=== PATIENT | male | born 1975 | race Two or more races ===

== ENCOUNTER 2021-02-01 18:26 | Inpatient (IN) | payer MEDICARE, OTHER ==
[~2021-02-01] VITALS: Ht 190.5 cm; Wt 67.1 kg
[2021-02-01] MEDS ORDERED: levoFLOXacin 500MG 100 ML IV ONE (19:45)
[2021-02-01 21:06] LABS: Basophils # (auto) 0.1 10 ^3/uL (0-0.2); Basophils % (auto) 0.5 % (0.0-2.0); Eosinophils # (auto) 0 10 ^3/uL (0-0.8); Eosinophils % (auto) 0.1 % (0.0-7.0); Hematocrit 39.1 % (41.0-53.0); Lymphocytes # (auto) 1.9 10 ^3/uL (0.4-5.4); Lymphocytes % (auto) 8.3 % (10.0-50.0); Mean Corpuscular Hemoglobin 30.6 pg (28.0-32.0); Mean Corpuscular Hgb Conc. 33.3 g/dL (32.0-36.0); Monocytes # (auto) 0.6 10 ^3/uL (0-1.3); Monocytes % (auto) 2.7 % (0.0-12.0); Neutrophils # (auto) 20.3 10 ^3/uL (1.6-8.6); Neutrophils % (auto) 88.4 % (37.0-80.0); Red Blood Cells 4.25 10^6/uL (4.5-5.90); Red Cell Distribution Width 16.3 % (11.8-14.3); White Blood Cell 22.9 10^3/uL (4.4-10.8)
[2021-02-01 21:34] LABS: Anion Gap 9 (5-15); Blood Urea Nitrogen 17 mg/dL (7-18); Carbon Dioxide 19 mmol/L (21-32); Chloride 99 mmol/L (98-107); Glucose 92 mg/dL (74-106); Potassium 4.2 mmol/L (3.5-5.1); Sodium 127 mmol/L (136-145)
[2021-02-01 21:37] LABS: Alanine Aminotransferase 35 U/L (16-61); Alkaline Phosphatase 123 U/L (45-117); Aspartate Aminotransferase 25 U/L (15-37); BUN/Creatinine Ratio 113.3; Bilirubin, Total 0.3 mg/dL (0.2-1.0); GFR African American 924 mL/min; GFR Non-African American 763 mL/min; Total Protein 7.4 g/dL (6.4-8.2)
[2021-02-01] MEDS ORDERED: ACETAMINOPHEN 650 MG RECT SUPP PR ONE (23:30)
[2021-02-01] MEDS ORDERED: SODIUM CHLORIDE 0.9% 1,000 ML IV ONE (23:30)
[2021-02-02] VITALS (7 sets, daily range): BP systolic 84–111; BP diastolic 56–68
[2021-02-02] MEDS ORDERED: SODIUM CHLORIDE 0.9% 2,000 ML IV ONE
[2021-02-02 00:49] LABS: Urine Bacteria FEW /hpf (None Seen); Urine Blood 1+ /uL (Negative); Urine Hyaline Cast FEW /lpf (0 - 2); Urine Mucus FEW (None Seen); Urine Specific Gravity 1.028 (1.001-1.035); Urine WBC 4 /hpf (0 - 3)
[2021-02-02] MEDS ORDERED: VANCOMYCIN PER PHARMACY 0 MG IV SCH ×2 (01:15→04:15)
[2021-02-02] MEDS ORDERED: NITROGLYCERIN 0.4 MG SL TAB SL PRN (01:15)
[2021-02-02] MEDS ORDERED: HYDROcodone-ACET 5/325MG TAB PO PRN (01:15)
[2021-02-02] MEDS ORDERED: ONDANSETRON HCL 4 MG/2 ML VIAL IV PRN (01:15)
[2021-02-02] MEDS ORDERED: ACETAMINOPHEN 325 MG TAB PO PRN (01:15)
[2021-02-02] MEDS ORDERED: MORPHINE SULF INJ 2 MG/ML SYRINGE 1ML IV PRN (01:15)
[2021-02-02] MEDS ORDERED: DOCUSATE SOD 100 MG CAP PO PRN (01:15)
[2021-02-02] MEDS ORDERED: VANCOMYCIN 1GM/250ML 250 ML IV ONE (01:30)
[2021-02-02] MEDS: SODIUM CHLORIDE 0.9% 1,000 ML IV SCH ×2 (04:30→18:10)
[2021-02-02] MEDS ORDERED: DIPH2.5T73 PO (05:43)
[2021-02-02] MEDS ORDERED: FAMO20TA10 GT (05:44)
[2021-02-02] MEDS ORDERED: TOPI100T29 PO (05:45)
[2021-02-02] MEDS ORDERED: BACL10TA PO (05:46)
[2021-02-02] MEDS ORDERED: PHEN32.44 PO (05:48)
[2021-02-02] MEDS ORDERED: LEVE100S4 PO (05:52)
[2021-02-02 08:35] LABS: Basophils # (auto) 0.1 10 ^3/uL (0-0.2); Basophils % (auto) 0.6 % (0.0-2.0); Eosinophils # (auto) 0 10 ^3/uL (0-0.8); Eosinophils % (auto) 0.2 % (0.0-7.0); Hemoglobin 12.5 g/dL (13.5-17.5); Lymphocytes % (auto) 5.8 % (10.0-50.0); Mean Corpuscular Hemoglobin 30.4 pg (28.0-32.0); Mean Corpuscular Hgb Conc. 32.9 g/dL (32.0-36.0); Mean Corpuscular Volume 92.5 fL (80.0-100.0); Monocytes # (auto) 0.9 10 ^3/uL (0-1.3); Monocytes % (auto) 4.9 % (0.0-12.0); Neutrophils # (auto) 15.7 10 ^3/uL (1.6-8.6); Neutrophils % (auto) 88.5 % (37.0-80.0); Nucleated Red Blood Cells % 0.2 %; Red Blood Cells 4.11 10^6/uL (4.5-5.90); Red Cell Distribution Width 16.8 % (11.8-14.3); White Blood Cell 17.7 10^3/uL (4.4-10.8)
[2021-02-02 08:43] LABS: Calcium 7.5 mg/dL (8.5-10.1)
[2021-02-02 08:49] LABS: Albumin 2.6 g/dL (3.4-5.0); BUN/Creatinine Ratio 39.1; Bilirubin, Total 0.3 mg/dL (0.2-1.0); Total Protein 6.3 g/dL (6.4-8.2)
[2021-02-02] MEDS ORDERED: MULTIPLE VITAMIN TAB PO SCH (10:00)
[2021-02-02] MEDS ORDERED: ZINC SULFATE 220mg CAP or TAB PO SCH (10:00)
[2021-02-02] MEDS ORDERED: ENOXAPARIN SOD 30 MG/0.3 ML SYRINGE SC SCH (10:00)
[2021-02-02] MEDS ORDERED: FAMOTIDINE (10MG/ML) 2ML VL IV SCH (10:00)
[2021-02-02] MEDS ORDERED: ASCORBIC ACID 500 MG TAB PO SCH (10:00)
[2021-02-02] MEDS: AZITHROMYCIN 500MG/ 250ML 250 ML IV SCH (12:33)
[2021-02-02] MEDS ORDERED: ALBUTEROL SULF 2.5 MG/0.5ML(0.5%) NEB SOLN NEB PRN (13:30)
[2021-02-02] MEDS ORDERED: IPRATROPIUM BROM 0.5 MG/2.5ML INH SOL NEB PRN (13:30)
[2021-02-02] MEDS: cefTRIAXone 1GM/50ML D5W 50 ML IV SCH (14:17)
[2021-02-02] MEDS: VANCOMYCIN 1GM/250ML 250 ML IV SCH (17:20)
[2021-02-02] MEDS ORDERED: levETIRAcetam 500 MG/5ML INJ IV ONE (21:59)
[2021-02-03 02:41] VITALS: BP 110/67
[2021-02-03] MEDS: VANCOMYCIN 1GM/250ML 250 ML IV SCH ×2 (04:48→17:15)
[2021-02-03 05:00] VITALS: BP 100/61
[2021-02-03 09:00] VITALS: BP 122/70
[2021-02-03] MEDS: cefTRIAXone 1GM/50ML D5W 50 ML IV SCH (09:20)
[2021-02-03] MEDS: AZITHROMYCIN 500MG/ 250ML 250 ML IV SCH (09:45)
[2021-02-03] MEDS: SODIUM CHLORIDE 0.9% 1,000 ML IV SCH (10:35)
[2021-02-03 11:57] LABS: Basophils # (auto) 0.1 10 ^3/uL (0-0.2); Basophils % (auto) 0.4 % (0.0-2.0); Eosinophils # (auto) 0 10 ^3/uL (0-0.8); Hematocrit 39.2 % (41.0-53.0); Hemoglobin 13.1 g/dL (13.5-17.5); Lymphocytes # (auto) 0.9 10 ^3/uL (0.4-5.4)
[2021-02-03 11:59] LABS: Eosinophils % (auto) 0.2 % (0.0-7.0); Lymphocytes % (auto) 6.7 % (10.0-50.0); Mean Corpuscular Hgb Conc. 33.5 g/dL (32.0-36.0); Mean Corpuscular Volume 92.6 fL (80.0-100.0); Monocytes # (auto) 0.4 10 ^3/uL (0-1.3); Monocytes % (auto) 3.1 % (0.0-12.0); Neutrophils # (auto) 12.3 10 ^3/uL (1.6-8.6); Neutrophils % (auto) 89.6 % (37.0-80.0); Red Blood Cells 4.23 10^6/uL (4.5-5.90); Red Cell Distribution Width 16.4 % (11.8-14.3); White Blood Cell 13.7 10^3/uL (4.4-10.8)
[2021-02-03 13:00] VITALS: BP 94/57
[2021-02-03 16:30] LABS: Basophils # (auto) 0.1 10 ^3/uL (0-0.2); Eosinophils # (auto) 0 10 ^3/uL (0-0.8); Eosinophils % (auto) 0.3 % (0.0-7.0); Hemoglobin 11.5 g/dL (13.5-17.5); Monocytes # (auto) 0.6 10 ^3/uL (0-1.3)
[2021-02-03 16:31] LABS: Basophils % (auto) 0.7 % (0.0-2.0); Hematocrit 33.4 % (41.0-53.0); Lymphocytes % (auto) 6.8 % (10.0-50.0); Mean Corpuscular Hemoglobin 31.5 pg (28.0-32.0); Mean Corpuscular Hgb Conc. 34.3 g/dL (32.0-36.0); Mean Corpuscular Volume 91.8 fL (80.0-100.0); Monocytes % (auto) 4.1 % (0.0-12.0); Neutrophils # (auto) 12.7 10 ^3/uL (1.6-8.6); Neutrophils % (auto) 88.1 % (37.0-80.0); Red Blood Cells 3.64 10^6/uL (4.5-5.90); Red Cell Distribution Width 16.2 % (11.8-14.3); White Blood Cell 14.5 10^3/uL (4.4-10.8)
[2021-02-03 17:00] VITALS: BP 106/58
[2021-02-03 23:20] VITALS: BP 107/69
[2021-02-04] MEDS: VANCOMYCIN 1GM/250ML 250 ML IV SCH ×2 (02:41→11:34)
[2021-02-04] MEDS: SODIUM CHLORIDE 0.9% 1,000 ML IV SCH ×3 (02:41→20:41)
[2021-02-04 05:46] VITALS: BP 109/72
[2021-02-04 06:21] LABS: Eosinophils % (auto) 0.5 % (0.0-7.0); Lymphocytes # (auto) 1.4 10 ^3/uL (0.4-5.4); Monocytes # (auto) 0.6 10 ^3/uL (0-1.3); Neutrophils # (auto) 7.9 10 ^3/uL (1.6-8.6); Nucleated Red Blood Cells % 0.1 %; Red Cell Distribution Width 16.4 % (11.8-14.3)
[2021-02-04 06:25] LABS: Basophils # (auto) 0 10 ^3/uL (0-0.2); Basophils % (auto) 0.2 % (0.0-2.0); Eosinophils # (auto) 0.1 10 ^3/uL (0-0.8); Hematocrit 34.3 % (41.0-53.0); Hemoglobin 11.8 g/dL (13.5-17.5); Lymphocytes % (auto) 13.6 % (10.0-50.0); Mean Corpuscular Hemoglobin 31.5 pg (28.0-32.0); Mean Corpuscular Hgb Conc. 34.3 g/dL (32.0-36.0); Mean Corpuscular Volume 91.6 fL (80.0-100.0); Monocytes % (auto) 5.8 % (0.0-12.0); Neutrophils % (auto) 79.9 % (37.0-80.0); Red Blood Cells 3.74 10^6/uL (4.5-5.90)
[2021-02-04 06:55] LABS: BUN/Creatinine Ratio 43.8; Calcium 7.9 mg/dL (8.5-10.1); Potassium 3.7 mmol/L (3.5-5.1)
[2021-02-04 08:30] VITALS: BP 108/69
[2021-02-04] MEDS: cefTRIAXone 1GM/50ML D5W 50 ML IV SCH (10:30)
[2021-02-04 12:30] VITALS: BP 110/82
[2021-02-04] MEDS: AZITHROMYCIN 500MG/ 250ML 250 ML IV SCH (13:30)
[2021-02-04 17:00] VITALS: BP 116/69
[2021-02-04 22:00] VITALS: BP 126/78
[2021-02-05 05:00] VITALS: BP 127/74
[2021-02-05] MEDS: SODIUM CHLORIDE 0.9% 1,000 ML IV SCH ×2 (05:58→14:20)
[2021-02-05] MEDS: AZITHROMYCIN 500MG/ 250ML 250 ML IV SCH (08:53)
[2021-02-05] MEDS: cefTRIAXone 1GM/50ML D5W 50 ML IV SCH (08:53)
[2021-02-05 09:00] VITALS: BP 105/72
[2021-02-05] MEDS ORDERED: VANCOMYCIN 1GM/250ML 250 ML IV SCH (11:00)
[2021-02-05 12:15] VITALS: BP 104/70
[2021-02-05 13:00] VITALS: BP 104/70
== END 2021-02-05 16:00 | disposition home or self-care (01) | DRG 871 ==
LOC: ER 18:26 → TELE-WESTW 02-02 01:13 → ER 02-02 04:01
PROVIDERS: ADMIT Nurse Practitioner Family; ATTEND Family Medicine
DX: A41.9 Sepsis, unspecified organism (principal); J18.9 Pneumonia, unspecified organism; J96.01 Acute respiratory failure with hypoxia; E87.1 Hypo-osmolality and hyponatremia; Z20.822 Contact with and (suspected) exposure to COVID-19; D47.3 Essential (hemorrhagic) thrombocythemia; G40.909 Epilepsy, unspecified, not intractable, without status epilepticus; K21.9 Gastro-esophageal reflux disease without esophagitis; K52.9 Noninfective gastroenteritis and colitis, unspecified; I95.9 Hypotension, unspecified; Z79.899 Other long term (current) drug therapy; Z79.891 Long term (current) use of opiate analgesic; Z79.01 Long term (current) use of anticoagulants; Z93.1 Gastrostomy status
CPT/HCPCS: 36415; 36600; 71045; 80048; 80053; 80202; 81001; 82542; 82565; 82805; 83605; 84484; 85025; 87040; 87070; 87077; 87186; 87205; 87426; 93005; 96361; 96365; 99291; G0378; J0696; J1956; J7060

== ENCOUNTER → 2021-07-18 | Emergency (ER) | payer MEDICAID, OTHER ==
[~2021-07-18] VITALS: Ht 190.5 cm; Wt 59.0 kg
[~2021-07-18] MED LIST: BACL10TA PO; DIPH2.5T73 PO; FAMO20TA10 GT; LEVE100S4 PO; LEVO-28 PO; LIDOCAINE 1% HCL (LOCAL ANESTH.) INJ 20ML MDV ONE; PHEN32.44 PO; TOPI100T29 PO; cefTRIAXone SOD 1,000 MG VL ONE; cefTRIAXone W LIDOCAINE 1 GM IM IM ONE
[2021-07-18 10:01] VITALS: BP 88/62
[2021-07-18 12:23] LABS: Basophils # (auto) 0.1 10 ^3/uL (0-0.2); Basophils % (auto) 1.6 % (0.0-2.0); Eosinophils # (auto) 0 10 ^3/uL (0-0.8); Eosinophils % (auto) 0.6 % (0.0-7.0); Hematocrit 39.2 % (41.0-53.0); Lymphocytes # (auto) 1.7 10 ^3/uL (0.4-5.4); Lymphocytes % (auto) 35.2 % (10.0-50.0); Mean Corpuscular Hemoglobin 31.3 pg (28.0-32.0); Mean Corpuscular Hgb Conc. 33.2 g/dL (32.0-36.0); Mean Corpuscular Volume 94.4 fL (80.0-100.0); Monocytes # (auto) 0.5 10 ^3/uL (0-1.3); Monocytes % (auto) 10.7 % (0.0-12.0); Neutrophils # (auto) 2.5 10 ^3/uL (1.6-8.6); Neutrophils % (auto) 51.9 % (37.0-80.0); Nucleated Red Blood Cells % 0.2 %; Red Blood Cells 4.15 10^6/uL (4.5-5.90); Red Cell Distribution Width 14.1 % (11.8-14.3); White Blood Cell 4.7 10^3/uL (4.4-10.8)
[2021-07-18 12:41] LABS: Albumin 2.8 g/dL (3.4-5.0); Calcium 8.2 mg/dL (8.5-10.1); Potassium 4.4 mmol/L (3.5-5.1)
[2021-07-18 12:46] LABS: BUN/Creatinine Ratio 45.5; Bilirubin, Total 0.1 mg/dL (0.2-1.0); Total Protein 6.9 g/dL (6.4-8.2)
== END | disposition home or self-care (01) ==
LOC: ER 09:56
DX: J40 Bronchitis, not specified as acute or chronic (principal); E44.0 Moderate protein-calorie malnutrition; Z68.1 Body mass index [BMI] 19.9 or less, adult
CPT/HCPCS: 36415; 71045; 80053; 85025; 96372; 99284; J0696; J2001

== ENCOUNTER 2021-07-31 13:09 | Inpatient (IN) | payer OTHER ==
[~2021-07-31] VITALS: Ht 190.5 cm; Wt 59.0 kg
[~2021-07-31 13:09] MED LIST changes: -LIDOCAINE 1% HCL (LOCAL ANESTH.) INJ 20ML MDV ONE; -cefTRIAXone SOD 1,000 MG VL ONE; -cefTRIAXone W LIDOCAINE 1 GM IM IM ONE
[2021-07-31] MEDS ORDERED: ACETAMINOPHEN 500 MG TAB PO ONE (14:15)
[2021-07-31] MEDS ORDERED: SODIUM CHLORIDE 0.9% 1,000 ML IV ONE (14:15)
[2021-07-31] MEDS ORDERED: cefTRIAXone 1GM/50ML D5W 50 ML IV ONE (14:30)
[2021-07-31 15:14] LABS: Basophils # (auto) 0 10 ^3/uL (0-0.2); Basophils % (auto) 0.3 % (0.0-2.0); Eosinophils # (auto) 0 10 ^3/uL (0-0.8); Hematocrit 40.9 % (41.0-53.0); Hemoglobin 13.7 g/dL (13.5-17.5); Lymphocytes # (auto) 1.1 10 ^3/uL (0.4-5.4); Lymphocytes % (auto) 16.3 % (10.0-50.0); Mean Corpuscular Hemoglobin 31.7 pg (28.0-32.0); Mean Corpuscular Hgb Conc. 33.4 g/dL (32.0-36.0); Mean Corpuscular Volume 94.9 fL (80.0-100.0); Monocytes # (auto) 1.2 10 ^3/uL (0-1.3); Monocytes % (auto) 16.9 % (0.0-12.0); Neutrophils # (auto) 4.6 10 ^3/uL (1.6-8.6); Neutrophils % (auto) 66.5 % (37.0-80.0); Nucleated Red Blood Cells % 0.1 %; Red Blood Cells 4.31 10^6/uL (4.5-5.90); Red Cell Distribution Width 15.2 % (11.8-14.3)
[2021-07-31 15:35] LABS: Potassium 3.7 mmol/L (3.5-5.1)
[2021-07-31 15:44] LABS: Albumin 2.7 g/dL (3.4-5.0); BUN/Creatinine Ratio 52.8; Bilirubin, Total 0.3 mg/dL (0.2-1.0); Calcium 7.8 mg/dL (8.5-10.1); Total Protein 6.7 g/dL (6.4-8.2)
[2021-07-31] MEDS: NOREPINEPHRINE 8 MG/250ML KIT 250 ML IV SCH (19:09)
[2021-07-31] MEDS ORDERED: VANCOMYCIN PER PHARMACY 1,000 MG IV SCH (19:30)
[2021-07-31] MEDS ORDERED: LORazepam 2MG/ML-1ML VIAL IV PRN (19:30)
[2021-07-31] MEDS ORDERED: ACETAMINOPHEN 325 MG TAB PO PRN ×2 (19:30→20:15)
[2021-07-31] MEDS ORDERED: MORPHINE SULFATE INJECTION 2 MG/ML SYRG IV PRN ×3 (19:30→20:15)
[2021-07-31] MEDS ORDERED: CARISOPRODOL 350 MG TAB PO PRN (19:45)
[2021-07-31] MEDS ORDERED: VANCOMYCIN 1GM/250ML 250 ML IV ONE (20:00)
[2021-07-31] MEDS ORDERED: ONDANSETRON HCL 4 MG/2 ML VIAL IV PRN (20:15)
[2021-07-31] MEDS ORDERED: HYDROcodone-ACET 5/325MG TAB PO PRN (20:15)
[2021-07-31] MEDS ORDERED: DOCUSATE SOD 100 MG CAP PO PRN (20:15)
[2021-07-31] MEDS ORDERED: LORazepam 0.5 MG TAB PO PRN (20:15)
[2021-07-31] MEDS ORDERED: ALUM & MAG HYDROX-SIMETH LIQ(MAALOX) 30 ML PO PRN (20:15)
[2021-07-31] MEDS ORDERED: NITROGLYCERIN 0.4 MG SL TAB SL PRN (20:15)
[2021-07-31] MEDS ORDERED: ALBUTEROL SULF 2.5 MG/0.5ML(0.5%) NEB SOLN NEB ONE (20:30)
[2021-07-31] MEDS ORDERED: ALBUMIN 25% 100 ML IV ONE (20:30)
[2021-07-31] MEDS ORDERED: FAMOTIDINE (10MG/ML) 2ML VL IV ONE (20:30)
[2021-07-31] MEDS ORDERED: IPRATROPIUM BROM 0.5 MG/2.5ML INH SOL NEB ONE (20:30)
[2021-07-31] MEDS ORDERED: ACETYLCYSTEINE 20%(200MG/ML) SOL 4ML NEB ONE (20:30)
[2021-07-31 20:37] LABS: Cholesterol 76 mg/dL (< 200)
[2021-07-31 20:39] LABS: HDL Cholesterol 44 mg/dL (40-59); LDL Cholesterol 34 mg/dL (< 100); Triglycerides 40 mg/dL (< 150)
[2021-07-31] MEDS: SODIUM CHLORIDE 0.9% 1,000 ML IV SCH (21:55)
[2021-07-31] MEDS: ACETYLCYSTEINE 20%(200MG/ML) SOL 4ML NEB SCH (22:07)
[2021-07-31] MEDS: IPRATROPIUM BROM 0.5 MG/2.5ML INH SOL NEB SCH (22:08)
[2021-07-31] MEDS: ALBUTEROL SULF 2.5 MG/0.5ML(0.5%) NEB SOLN NEB PRN (22:08)
[2021-07-31] MEDS: TOPIRAMATE 100 MG TAB PO SCH (23:00)
[2021-07-31] MEDS: PHENobarbital 32.4 MG TAB PO SCH (23:00)
[2021-07-31] MEDS: levETIRAcetam 500 MG TAB PO SCH (23:00)
[2021-07-31] MEDS: PIPERACILLIN-TAZOB 3.375GM 100 ML IV SCH (23:28)
[2021-08-01] MEDS: ALBUTEROL SULF 2.5 MG/0.5ML(0.5%) NEB SOLN NEB PRN ×4 (02:30→21:06)
[2021-08-01] MEDS: ACETYLCYSTEINE 20%(200MG/ML) SOL 4ML NEB SCH ×6 (02:31→22:00)
[2021-08-01] MEDS: NOREPINEPHRINE 8 MG/250ML KIT 250 ML IV SCH (03:50)
[2021-08-01] MEDS: ALBUMIN 25% 100 ML IV SCH ×3 (04:48→22:45)
[2021-08-01] MEDS: VANCOMYCIN 1GM/250ML 250 ML IV SCH ×2 (05:04→14:07)
[2021-08-01] MEDS: IPRATROPIUM BROM 0.5 MG/2.5ML INH SOL NEB SCH ×5 (05:54→22:00)
[2021-08-01] MEDS: PIPERACILLIN-TAZOB 3.375GM 100 ML IV SCH ×3 (06:00→18:22)
[2021-08-01 07:37] LABS: Basophils # (auto) 0 10 ^3/uL (0-0.2); Basophils % (auto) 0.3 % (0.0-2.0); Eosinophils # (auto) 0 10 ^3/uL (0-0.8); Hematocrit 32.4 % (41.0-53.0); Hemoglobin 10.7 g/dL (13.5-17.5); Lymphocytes # (auto) 1.1 10 ^3/uL (0.4-5.4); Lymphocytes % (auto) 11.9 % (10.0-50.0); Mean Corpuscular Hemoglobin 31.6 pg (28.0-32.0); Mean Corpuscular Hgb Conc. 32.9 g/dL (32.0-36.0); Monocytes % (auto) 10.9 % (0.0-12.0); Neutrophils # (auto) 6.9 10 ^3/uL (1.6-8.6); Neutrophils % (auto) 76.9 % (37.0-80.0); Nucleated Red Blood Cells % 0.1 %; Red Blood Cells 3.37 10^6/uL (4.5-5.90); Red Cell Distribution Width 15.1 % (11.8-14.3)
[2021-08-01 07:55] LABS: Albumin 3.5 g/dL (3.4-5.0)
[2021-08-01] MEDS: CALCIUM W/VIT D (600MG/400IU) TAB PO SCH ×2 (08:00→18:22)
[2021-08-01 08:08] LABS: BUN/Creatinine Ratio 25.9; Bilirubin, Total 0.5 mg/dL (0.2-1.0); CRP High Sensitivity 3.98 mg/dL (< 0.3); Calcium 7.6 mg/dL (8.5-10.1); Magnesium 2.9 mg/dL (1.6-2.6); Phosphorus 1.6 mg/dL (2.5-4.90); Total Protein 6.2 g/dL (6.4-8.2); Uric Acid 1.9 mg/dL (3.5-7.2)
[2021-08-01 08:12] LABS: Thyroid Stimulating Hormone 0.18 uIU/mL (0.358-3.74)
[2021-08-01 08:28] LABS: INR 1.21 (0.9-1.15); Partial Thromboplastin Time 31.7 sec (23.6-33.0)
[2021-08-01 08:32] LABS: Potassium 2.6 mmol/L (3.5-5.1)
[2021-08-01] MEDS: SODIUM CHLORIDE 0.9% 1,000 ML IV SCH ×2 (09:05→16:22)
[2021-08-01] MEDS ORDERED: ENOXAPARIN SOD 40 MG/0.4 ML SYRINGE SC SCH (10:00)
[2021-08-01] MEDS: FLORASTOR (S. BOULARDII) 250 MG CAP PO SCH (10:11)
[2021-08-01] MEDS: levETIRAcetam 500 MG TAB PO SCH ×2 (10:11→22:47)
[2021-08-01] MEDS: FAMOTIDINE (10MG/ML) 2ML VL IV SCH ×2 (10:11→22:46)
[2021-08-01] MEDS: PHENobarbital 32.4 MG TAB PO SCH ×2 (10:11→22:47)
[2021-08-01] MEDS: TOPIRAMATE 100 MG TAB PO SCH ×2 (10:12→22:00)
[2021-08-01] MEDS ORDERED: ENOXAPARIN SOD 60 MG/0.6 ML SYRINGE SC ONE (10:15)
[2021-08-01] MEDS ORDERED: POTASSIUM CHL 10MEQ/50ML 50 ML IV SCH (10:15)
[2021-08-01] MEDS ORDERED: Jevity 1.2 Cal/Fiber 1 Liter GT SCH (10:15)
[2021-08-01] MEDS: POTASSIUM CHL 10MEQ/50ML 50 ML IV SCH ×9 (10:45→18:22)
[2021-08-01] MEDS ORDERED: IOHEXOL 350 MG/ML 100ML IJ ONE ×2 (11:08→13:41)
[2021-08-01] MEDS ORDERED: ALBUMIN 25% 100 ML IV ONE (13:18)
[2021-08-01 14:39] LABS: Free T3 1.75 pg/mL (2.3-4.2); Free T4 (Free Thyroxine) 0.78 ng/dL (0.89-1.76)
[2021-08-01 15:01] LABS: Urine Bacteria NONE SEEN /hpf (None Seen); Urine Blood 1+ /uL (Negative); Urine Mucus FEW (None Seen); Urine Specific Gravity 1.017 (1.001-1.035); Urine WBC 4 /hpf (0 - 3)
[2021-08-01 15:05] LABS: Alcohol, Urine < 3.0 mg/dL (0-10); Amphetamine Screen, Urine NEGATIVE (NEGATIVE); Barbiturate Scree,Urine POSITIVE (NEGATIVE); Benzodiazephine Screen, Urine NEGATIVE (NEGATIVE); Cannabinoid Screen, Urine NEGATIVE (NEGATIVE); Cocaine Screen, Urine NEGATIVE (NEGATIVE); Opiate Scree,Urine NEGATIVE (NEGATIVE); Phencyclidine Screen, Urine NEGATIVE (NEGATIVE)
[2021-08-01] MEDS ORDERED: METOCLOPRAMIDE HCL 5MG/ml INJ 2ml VIAL IV PRN (17:00)
[2021-08-01] MEDS: ENOXAPARIN SOD 60 MG/0.6 ML SYRINGE SC SCH (22:45)
[2021-08-02] MEDS: PIPERACILLIN-TAZOB 3.375GM 100 ML IV SCH ×5 (00:32→23:55)
[2021-08-02] MEDS: VANCOMYCIN 1GM/250ML 250 ML IV SCH ×3 (01:20→17:15)
[2021-08-02] MEDS: ACETYLCYSTEINE 20%(200MG/ML) SOL 4ML NEB SCH ×5 (02:00→20:45)
[2021-08-02] MEDS: IPRATROPIUM BROM 0.5 MG/2.5ML INH SOL NEB SCH ×6 (02:00→23:22)
[2021-08-02] MEDS: ALBUTEROL SULF 2.5 MG/0.5ML(0.5%) NEB SOLN NEB PRN ×5 (06:30→23:23)
[2021-08-02] MEDS: CALCIUM W/VIT D (600MG/400IU) TAB PO SCH ×2 (08:00→18:16)
[2021-08-02 09:32] LABS: Basophils # (auto) 0 10 ^3/uL (0-0.2); Basophils % (auto) 0.3 % (0.0-2.0); Eosinophils # (auto) 0 10 ^3/uL (0-0.8); Eosinophils % (auto) 0.1 % (0.0-7.0); Hematocrit 34.8 % (41.0-53.0); Hemoglobin 11.6 g/dL (13.5-17.5); Lymphocytes # (auto) 1.2 10 ^3/uL (0.4-5.4); Lymphocytes % (auto) 12.7 % (10.0-50.0); Mean Corpuscular Hemoglobin 31.8 pg (28.0-32.0); Mean Corpuscular Hgb Conc. 33.2 g/dL (32.0-36.0); Mean Corpuscular Volume 95.8 fL (80.0-100.0); Monocytes # (auto) 0.7 10 ^3/uL (0-1.3); Monocytes % (auto) 7.5 % (0.0-12.0); Neutrophils # (auto) 7.3 10 ^3/uL (1.6-8.6); Neutrophils % (auto) 79.4 % (37.0-80.0); Red Blood Cells 3.63 10^6/uL (4.5-5.90); Red Cell Distribution Width 15.4 % (11.8-14.3); White Blood Cell 9.2 10^3/uL (4.4-10.8)
[2021-08-02] MEDS: ENOXAPARIN SOD 60 MG/0.6 ML SYRINGE SC SCH ×2 (09:45→22:25)
[2021-08-02] MEDS: levETIRAcetam 500 MG TAB PO SCH ×2 (09:45→22:24)
[2021-08-02] MEDS: PHENobarbital 32.4 MG TAB PO SCH ×2 (09:45→22:24)
[2021-08-02] MEDS: TOPIRAMATE 100 MG TAB PO SCH ×2 (09:45→22:24)
[2021-08-02] MEDS: FAMOTIDINE (10MG/ML) 2ML VL IV SCH ×2 (09:45→22:24)
[2021-08-02] MEDS: FLORASTOR (S. BOULARDII) 250 MG CAP PO SCH (09:45)
[2021-08-02] MEDS: NOREPINEPHRINE 8 MG/250ML KIT 250 ML IV SCH (09:47)
[2021-08-02] MEDS: SODIUM CHLORIDE 0.9% 1,000 ML IV SCH ×2 (11:45→23:55)
[2021-08-03] MEDS: VANCOMYCIN 1GM/250ML 250 ML IV SCH ×2 (00:54→10:11)
[2021-08-03] MEDS: IPRATROPIUM BROM 0.5 MG/2.5ML INH SOL NEB SCH ×4 (02:24→14:26)
[2021-08-03] MEDS: ALBUTEROL SULF 2.5 MG/0.5ML(0.5%) NEB SOLN NEB PRN ×4 (02:24→14:26)
[2021-08-03] MEDS: PIPERACILLIN-TAZOB 3.375GM 100 ML IV SCH ×3 (05:42→18:22)
[2021-08-03 08:36] LABS: Basophils # (auto) 0 10 ^3/uL (0-0.2); Basophils % (auto) 0.2 % (0.0-2.0); Eosinophils # (auto) 0 10 ^3/uL (0-0.8); Eosinophils % (auto) 0.4 % (0.0-7.0); Hematocrit 37.1 % (41.0-53.0); Hemoglobin 12.1 g/dL (13.5-17.5); Lymphocytes # (auto) 0.9 10 ^3/uL (0.4-5.4); Lymphocytes % (auto) 13.1 % (10.0-50.0); Mean Corpuscular Hemoglobin 31.2 pg (28.0-32.0); Mean Corpuscular Hgb Conc. 32.5 g/dL (32.0-36.0); Mean Corpuscular Volume 95.8 fL (80.0-100.0); Monocytes # (auto) 0.6 10 ^3/uL (0-1.3); Neutrophils # (auto) 5.7 10 ^3/uL (1.6-8.6); Neutrophils % (auto) 78.3 % (37.0-80.0); Red Blood Cells 3.88 10^6/uL (4.5-5.90); Red Cell Distribution Width 15.2 % (11.8-14.3); White Blood Cell 7.3 10^3/uL (4.4-10.8)
[2021-08-03 08:51] LABS: BUN/Creatinine Ratio 27.6; Calcium 7.8 mg/dL (8.5-10.1)
[2021-08-03] MEDS: CALCIUM W/VIT D (600MG/400IU) TAB PO SCH ×2 (10:05→18:22)
[2021-08-03] MEDS: FAMOTIDINE (10MG/ML) 2ML VL IV SCH ×2 (10:11→22:39)
[2021-08-03] MEDS: PHENobarbital 32.4 MG TAB PO SCH ×2 (10:12→22:39)
[2021-08-03] MEDS: FLORASTOR (S. BOULARDII) 250 MG CAP PO SCH (10:12)
[2021-08-03] MEDS: levETIRAcetam 500 MG TAB PO SCH ×2 (10:12→22:39)
[2021-08-03] MEDS: ENOXAPARIN SOD 60 MG/0.6 ML SYRINGE SC SCH ×2 (10:12→22:40)
[2021-08-03] MEDS: TOPIRAMATE 100 MG TAB PO SCH ×2 (10:13→22:40)
[2021-08-03] MEDS: SODIUM CHLORIDE 0.9% 1,000 ML IV SCH (14:55)
[2021-08-03] MEDS ORDERED: IPRATROPIUM BROM 0.5 MG/2.5ML INH SOL NEB PRN (16:45)
[2021-08-03] MEDS ORDERED: ALBUTEROL SULF 2.5 MG/0.5ML(0.5%) NEB SOLN NEB PRN (16:45)
[2021-08-03] MEDS: NOREPINEPHRINE 8 MG/250ML KIT 250 ML IV SCH (22:39)
[2021-08-04] MEDS: PIPERACILLIN-TAZOB 3.375GM 100 ML IV SCH ×4 (00:49→17:49)
[2021-08-04] MEDS: SODIUM CHLORIDE 0.9% 1,000 ML IV SCH ×2 (03:29→17:48)
[2021-08-04] MEDS: FAMOTIDINE (10MG/ML) 2ML VL IV SCH ×2 (10:13→21:55)
[2021-08-04] MEDS: CALCIUM W/VIT D (600MG/400IU) TAB PO SCH ×2 (10:13→17:49)
[2021-08-04] MEDS: PHENobarbital 32.4 MG TAB PO SCH ×2 (10:14→21:55)
[2021-08-04] MEDS: TOPIRAMATE 100 MG TAB PO SCH ×2 (10:14→21:56)
[2021-08-04] MEDS: levETIRAcetam 500 MG TAB PO SCH ×2 (10:14→21:55)
[2021-08-04] MEDS: FLORASTOR (S. BOULARDII) 250 MG CAP PO SCH (10:14)
[2021-08-04] MEDS: ENOXAPARIN SOD 60 MG/0.6 ML SYRINGE SC SCH ×2 (10:15→21:56)
[2021-08-04] MEDS: NOREPINEPHRINE 8 MG/250ML KIT 250 ML IV SCH ×2 (10:15→20:44)
[2021-08-04 10:23] LABS: Basophils # (auto) 0.1 10 ^3/uL (0-0.2); Basophils % (auto) 0.8 % (0.0-2.0); Eosinophils # (auto) 0 10 ^3/uL (0-0.8); Eosinophils % (auto) 0.4 % (0.0-7.0); Hematocrit 34.4 % (41.0-53.0); Hemoglobin 11.4 g/dL (13.5-17.5); Lymphocytes # (auto) 0.6 10 ^3/uL (0.4-5.4); Lymphocytes % (auto) 9.5 % (10.0-50.0); Mean Corpuscular Hemoglobin 31.7 pg (28.0-32.0); Mean Corpuscular Volume 95.9 fL (80.0-100.0); Monocytes # (auto) 0.7 10 ^3/uL (0-1.3); Monocytes % (auto) 10.9 % (0.0-12.0); Neutrophils # (auto) 5.3 10 ^3/uL (1.6-8.6); Neutrophils % (auto) 78.4 % (37.0-80.0); Red Blood Cells 3.59 10^6/uL (4.5-5.90); Red Cell Distribution Width 15.2 % (11.8-14.3); White Blood Cell 6.8 10^3/uL (4.4-10.8)
[2021-08-04 11:52] LABS: BUN/Creatinine Ratio 24.7; Calcium 8.3 mg/dL (8.5-10.1)
[2021-08-04] MEDS ORDERED: IPRATROPIUM BROM 0.5 MG/2.5ML INH SOL NEB SCH (13:30)
[2021-08-04] MEDS ORDERED: ALBUTEROL SULF 2.5 MG/0.5ML(0.5%) NEB SOLN NEB SCH (13:30)
[2021-08-04 14:18] LABS: Hepatitis A Ab IgM Negative; Hepatitis B Core IgM Negative
[2021-08-04 14:19] LABS: Hepatitis C Antibody Negative (Negative)
[2021-08-04] MEDS: ALBUTEROL SULF 2.5 MG/0.5ML(0.5%) NEB SOLN NEB SCH ×2 (18:55→23:49)
[2021-08-04] MEDS: IPRATROPIUM BROM 0.5 MG/2.5ML INH SOL NEB PRN ×2 (18:55→23:49)
[2021-08-04] MEDS: ACETYLCYSTEINE 10 %(100MG/ML) SOL 4ML NEB SCH ×2 (18:55→23:49)
[2021-08-04] MEDS ORDERED: LORazepam 2MG/ML-1ML VIAL IV PRN (20:00)
[2021-08-05] MEDS: PIPERACILLIN-TAZOB 3.375GM 100 ML IV SCH ×3 (00:18→12:57)
[2021-08-05] MEDS: FREE WATER GT SCH ×4 (00:18→18:41)
[2021-08-05] MEDS: ALBUTEROL SULF 2.5 MG/0.5ML(0.5%) NEB SOLN NEB SCH ×3 (07:05→18:53)
[2021-08-05] MEDS: ACETYLCYSTEINE 10 %(100MG/ML) SOL 4ML NEB SCH ×3 (07:05→18:53)
[2021-08-05] MEDS: IPRATROPIUM BROM 0.5 MG/2.5ML INH SOL NEB PRN (08:48)
[2021-08-05] MEDS: CALCIUM W/VIT D (600MG/400IU) TAB PO SCH ×2 (11:12→18:41)
[2021-08-05] MEDS: PHENobarbital 32.4 MG TAB PO SCH ×2 (11:12→22:45)
[2021-08-05] MEDS: FLORASTOR (S. BOULARDII) 250 MG CAP PO SCH (11:12)
[2021-08-05] MEDS: levETIRAcetam 500 MG TAB PO SCH ×2 (11:12→22:45)
[2021-08-05] MEDS: FAMOTIDINE (10MG/ML) 2ML VL IV SCH ×2 (11:12→22:45)
[2021-08-05] MEDS: ENOXAPARIN SOD 60 MG/0.6 ML SYRINGE SC SCH (11:13)
[2021-08-05] MEDS: TOPIRAMATE 100 MG TAB PO SCH ×2 (11:13→22:00)
[2021-08-05] MEDS: levoFLOXacin 750MG 150 ML IV SCH (15:17)
[2021-08-05] MEDS: APIXABAN 5 MG TAB PEG SCH (22:45)
[2021-08-06] MEDS: ACETYLCYSTEINE 10 %(100MG/ML) SOL 4ML NEB SCH ×5 (00:05→22:53)
[2021-08-06] MEDS: IPRATROPIUM BROM 0.5 MG/2.5ML INH SOL NEB PRN ×3 (00:05→23:53)
[2021-08-06] MEDS: ALBUTEROL SULF 2.5 MG/0.5ML(0.5%) NEB SOLN NEB SCH ×5 (00:05→23:53)
[2021-08-06] MEDS: FREE WATER GT SCH ×5 (06:00→18:00)
[2021-08-06 06:37] LABS: BUN/Creatinine Ratio 28.8; Calcium 8.1 mg/dL (8.5-10.1); Potassium 3.9 mmol/L (3.5-5.1)
[2021-08-06] MEDS ORDERED: ALBUTEROL SULF 2.5 MG/0.5ML(0.5%) NEB SOLN ONE ×2 (07:12→17:18)
[2021-08-06] MEDS: CALCIUM W/VIT D (600MG/400IU) TAB PO SCH ×2 (09:50→18:57)
[2021-08-06] MEDS: levoFLOXacin 750MG 150 ML IV SCH (10:10)
[2021-08-06] MEDS: APIXABAN 5 MG TAB PEG SCH ×2 (10:38→22:51)
[2021-08-06] MEDS: FAMOTIDINE (10MG/ML) 2ML VL IV SCH ×2 (10:38→22:52)
[2021-08-06] MEDS: levETIRAcetam 500 MG TAB PO SCH ×2 (10:38→22:52)
[2021-08-06] MEDS: FLORASTOR (S. BOULARDII) 250 MG CAP PO SCH (11:35)
[2021-08-06] MEDS: PHENobarbital 32.4 MG TAB PO SCH ×2 (11:35→22:52)
[2021-08-06] MEDS: TOPIRAMATE 100 MG TAB PO SCH ×2 (11:35→22:00)
[2021-08-06] MEDS: D5W 5% 1,000 ML IV SCH (13:25)
[2021-08-06] MEDS ORDERED: ACETYLCYSTEINE 10 %(100MG/ML) SOL 4ML ONE (17:18)
[2021-08-06] MEDS ORDERED: IPRATROPIUM BROM 0.5 MG/2.5ML INH SOL ONE (17:18)
[2021-08-06] MEDS: NOREPINEPHRINE 8 MG/250ML KIT 250 ML IV SCH (18:45)
[2021-08-07] MEDS: FREE WATER GT SCH ×4 (00:27→18:44)
[2021-08-07] MEDS ORDERED: ALBUTEROL SULF 2.5 MG/0.5ML(0.5%) NEB SOLN ONE (06:04)
[2021-08-07] MEDS: ACETYLCYSTEINE 10 %(100MG/ML) SOL 4ML NEB SCH ×2 (06:04→18:30)
[2021-08-07] MEDS: ALBUTEROL SULF 2.5 MG/0.5ML(0.5%) NEB SOLN NEB SCH ×2 (06:04→18:30)
[2021-08-07] MEDS: D5W 5% 1,000 ML IV SCH ×5 (07:00→18:45)
[2021-08-07 07:29] LABS: BUN/Creatinine Ratio 30.8; Calcium 8.6 mg/dL (8.5-10.1); Potassium 3.8 mmol/L (3.5-5.1)
[2021-08-07] MEDS: CALCIUM W/VIT D (600MG/400IU) TAB PO SCH ×2 (08:18→18:44)
[2021-08-07] MEDS: APIXABAN 5 MG TAB PEG SCH ×2 (09:54→22:55)
[2021-08-07] MEDS: PHENobarbital 32.4 MG TAB PO SCH (09:54)
[2021-08-07] MEDS: FAMOTIDINE (10MG/ML) 2ML VL IV SCH (09:54)
[2021-08-07] MEDS: TOPIRAMATE 100 MG TAB PO SCH ×2 (09:55→22:55)
[2021-08-07] MEDS: levETIRAcetam 500 MG TAB PO SCH ×2 (09:55→22:55)
[2021-08-07] MEDS: levoFLOXacin 750MG 150 ML IV SCH (09:58)
[2021-08-07] MEDS: FLORASTOR (S. BOULARDII) 250 MG CAP PO SCH (09:58)
[2021-08-07] MEDS ORDERED: APIX5TAB PEG (11:57)
[2021-08-07] MEDS ORDERED: MIDODRINE HCL 10 MG TAB PEG ONE (15:45)
[2021-08-07] MEDS ORDERED: SODIUM CHLORIDE 0.9% 500 ML IV ONE (15:45)
[2021-08-07] MEDS ORDERED: ALBUMIN 25% 50 ML IV ONE ×2 (15:45→17:14)
[2021-08-07] MEDS: MIDODRINE HCL 10 MG TAB PEG SCH (18:00)
[2021-08-07] MEDS ORDERED: TOPIRAMATE 100 MG TAB ONE (23:03)
[2021-08-07] MEDS ORDERED: levETIRAcetam 500 MG TAB PO ONE (23:06)
[2021-08-07] MEDS ORDERED: APIXABAN 5 MG TAB ONE (23:06)
[2021-08-07] MEDS ORDERED: FAMOTIDINE (10MG/ML) 2ML VL IV SCH (23:30)
[2021-08-07] MEDS ORDERED: PHENobarbital 32.4 MG TAB PO SCH (23:30)
[2021-08-08] MEDS: ACETYLCYSTEINE 10 %(100MG/ML) SOL 4ML NEB SCH ×3 (00:20→11:58)
[2021-08-08] MEDS: ALBUTEROL SULF 2.5 MG/0.5ML(0.5%) NEB SOLN NEB SCH ×3 (00:20→11:58)
[2021-08-08] MEDS ORDERED: SOD CHL 0.45% 500 ML IV ONE (03:00)
[2021-08-08] MEDS ORDERED: ALBUTEROL SULF 2.5 MG/0.5ML(0.5%) NEB SOLN ONE (05:59)
[2021-08-08] MEDS ORDERED: IPRATROPIUM BROM 0.5 MG/2.5ML INH SOL ONE (05:59)
[2021-08-08] MEDS ORDERED: ACETYLCYSTEINE 10 %(100MG/ML) SOL 4ML ONE (05:59)
[2021-08-08] MEDS ORDERED: BUDESONIDE (INHALATION) 0.5 MG/2 ML NEB ONE (05:59)
[2021-08-08] MEDS: FREE WATER GT SCH ×2 (06:01)
[2021-08-08] MEDS: IPRATROPIUM BROM 0.5 MG/2.5ML INH SOL NEB PRN ×2 (06:05→11:58)
[2021-08-08] MEDS: MIDODRINE HCL 10 MG TAB PEG SCH (08:06)
[2021-08-08] MEDS ORDERED: MID10T PEG (08:36)
[2021-08-08 09:16] VITALS: BP 87/52
[2021-08-12] MEDS ORDERED: APIXABAN 5 MG TAB PEG SCH (22:00)
== END 2021-08-08 09:33 | disposition home or self-care (01) | DRG 871 ==
LOC: ER 13:09 → UNDOADMIN 20:07 → TELE 20:07 → UNDODEPER 08-07 15:08 → UNDODISIN 08-07 15:38 → ER 08-07 15:38 → TELE 08-07 15:38
PROVIDERS: ADMIT Hospitalist; ATTEND Internal Medicine Geriatric Medicine
PROC: 06HM33Z Insertion of Infusion Device into Right Femoral Vein, Percutaneous Approach (ICD-10-PCS; principal; 2021-07-31)
DX: A41.9 Sepsis, unspecified organism (principal); R65.21 Severe sepsis with septic shock; J69.0 Pneumonitis due to inhalation of food and vomit; I21.A1 Myocardial infarction type 2; I50.31 Acute diastolic (congestive) heart failure; E87.0 Hyperosmolality and hypernatremia; J84.9 Interstitial pulmonary disease, unspecified; I82.412 Acute embolism and thrombosis of left femoral vein; I82.432 Acute embolism and thrombosis of left popliteal vein; Z68.1 Body mass index [BMI] 19.9 or less, adult; Z20.822 Contact with and (suspected) exposure to COVID-19; G40.909 Epilepsy, unspecified, not intractable, without status epilepticus; K21.9 Gastro-esophageal reflux disease without esophagitis; D64.9 Anemia, unspecified; E87.6 Hypokalemia; Z74.01 Bed confinement status; Z99.3 Dependence on wheelchair; Z79.899 Other long term (current) drug therapy; Z87.820 Personal history of traumatic brain injury; Z81.8 Family history of other mental and behavioral disorders
CPT/HCPCS: 36415; 36600; 71045; 71275; 76705; 80048; 80053; 80061; 80074; 80184; 80201; 80202; 80307; 81001; 82040; 82306; 82533; 82542; 82565; 82728; 82805; 83036; 83605; 83615; 83690; 83735; 83880; 84100; 84132; 84439; 84443; 84481; 84484; 84550; 85025; 85379; 85610; 85730; 86141; 87040; 87426; 87493; 93005; 93306; 93970; 94640; 96361; 96365; 96366; 99291; G0378; J0696; J1956; J2543; J3490; P9047